=== PATIENT | male | born 2000 | race Two or more races ===

== ENCOUNTER 2020-06-13 21:11 | Emergency (ER) | payer BC, OTHER ==
--- NOTE | 2020-06-13 22:02 | EDM.PDOC ---
ED HPI GENERAL MEDICAL PROBLEM - General Chief Complaint: Upper Extremity Injury/Pain Stated Complaint: RIDING BULLS FELL OFF INJURED RIGHT ARM Time Seen by Provider: 06/13/20 21:34 Source of Information: Reports: Patient History Limitations: Reports: No Limitations - History of Present Illness INITIAL COMMENTS - FREE TEXT/NARRATIVE: Patient is a 20-year-old male presenting to the emergency department with complaints of pain and swelling to his right forearm. [place] When he [place] the bull, it stepped on his forearm. He has full sensation distal to the injury, but complains of pain to the radial side of his mid forearm. He also has a small superficial abrasion on the dorsal aspect of his forearm. He did not hit his head when he came off the bull. He denies any other injuries. Right Lower Arm Pain Score (Numeric/FACES): 7 - Related Data Allergies Allergy/AdvReac Type Severity Reaction Status Date / Time No Known Allergies Allergy Verified 06/13/20 21:24 Home Meds: Home Meds . [No Known Home Meds] 06/13/20 [History] Past Medical History - Past Health History Medical/Surgical History: Denies Medical/Surgical History Social & Family History - Tobacco Use Smoking Status *Q: Never Smoker Second Hand Smoke Exposure: No - Caffeine Use Caffeine Use: Reports: None - Recreational Drug Use Recreational Drug Use: No Review of Systems - Review of Systems Review Of Systems: Comprehensive ROS is negative, except as noted in HPI. ED EXAM, GENERAL - Physical Exam Exam: See Below Exam Limited By: No Limitations General Appearance: Alert, WD/WN, No Apparent Distress Respiratory/Chest: No Respiratory Distress, Lungs Clear, Normal Breath Sounds, No Accessory Muscle Use, Chest Non-Tender Cardiovascular: Normal Peripheral Pulses, Regular Rate, Rhythm, No Edema, No Gallop, No JVD, No Murmur, No Rub Extremities: Other (superficial abrasion to the dorsal aspect of the right forarm. Swelling and tenderness to palpation over the mid-radial aspect of the forearm. No obvious deformity.) Neurological: Alert, Oriented, CN II-XII Intact, Normal Cognition, Normal Gait, Normal Reflexes, No Motor/Sensory Deficits Course - Vital Signs Last Recorded V/S: Last Vital Signs Temp 97.6 F 06/13/20 21:22 Pulse 97 06/13/20 21:22 Resp 16 06/13/20 21:22 BP 131/88 06/13/20 21:22 Pulse Ox 97 06/13/20 21:22 - Orders/Labs/Meds Orders: Active Orders 24 hr Category Date Time Status Forearm 2V Rt [CR] Stat Exams 06/13/20 21:26 Taken DME for Discharge [COMM] Stat Oth 06/13/20 23:17 Ordered - Re-Assessments/Exams Free Text/Narrative Re-Assessment/Exam: 06/13/20 23:21 X-ray of the right forearm shows a mildly displaced midshaft radial fracture. Abrasion was cleansed with saline by nursing staff. Patient has been placed in a custom long-arm Ortho-Glass volar splint with elbow at 90 degrees flexion. He will be provided an arm sling. Patient is returning home to [place] tomorrow, therefore he will need to follow-up with an orthopedist once he gets home. Recommend follow-up in 1 week. Ice elevate and pain management with [id number] Tylenol or ibuprofen. Discharge instructions documented. Departure - Departure Time of Disposition: 23:22 Disposition: Home, Self-Care 01 Condition: Good Clinical Impression: Fracture of radius Qualifiers: Encounter type: initial encounter Radius location: shaft Fracture type: closed Fracture morphology: unspecified fracture morphology Laterality: right Qualified Code(s): S52.301A - Unspecified fracture of shaft of right radius, initial encounter for closed fracture - Discharge Information *PRESCRIPTION DRUG MONITORING PROGRAM REVIEWED*: No *COPY OF PRESCRIPTION DRUG MONITORING REPORT IN PATIENT OSMANI: No Instructions: Radial Fracture Referrals: PCP,Not In Area [Primary Care Provider] - Forms: ED Department Discharge Additional Instructions: You were seen in the emergency department today for pain to your right forearm after being stepped on by a bull. X-rays were completed and show that you have a midshaft fracture of the radius. A splint has been applied. This should remain intact at all times and be kept clean and dry. You have been provided with an arm sling. Wear this when you are up and moving around. Recommend that you ice and elevate the extremity for the next few days while at rest. May use [id number] Tylenol and ibuprofen as needed for pain. Recommend follow-up with an orthopedist in approximately 1 week. Return to the ER for any new or worsening symptoms of concern. Sepsis Event Note (ED) - Evaluation Sepsis Screening Result: No Definite Risk - My Orders Last 24 Hours: My Active Orders 06/13/20 21:26 Forearm 2V Rt [CR] Stat 06/13/20 23:17 DME for Discharge [COMM] Stat - Assessment/Plan Last 24 Hours: My Active Orders 06/13/20 21:26 Forearm 2V Rt [CR] Stat 06/13/20 23:17 DME for Discharge [COMM] Stat
--- NOTE | 2020-06-15 11:12 | CR ---
Right forearm: 2 views of the right forearm were obtained. Comparison: No previous forearm study. Soft tissue swelling is identified. Fracture is identified within the mid one third diaphysis of the radius with minimal displacement. No additional fracture or other bony abnormality is appreciated. Impression: 1. Fracture within the mid right radius as described above with soft tissue swelling. Diagnostic code #3 This report was dictated in MDT
== END 2020-06-14 00:06 | disposition home or self-care (01) ==
LOC: JD.ED 21:11
DX: S52.301A Unspecified fracture of shaft of right radius, initial encounter for closed fracture (principal); S50.811A Abrasion of right forearm, initial encounter; V80.018A Animal-rider injured by fall from or being thrown from other animal in noncollision accident, initial encounter
CPT/HCPCS: 29105; 73090-26-RT; 73090-RT; 99282; 99283-25